=== PATIENT | male | born 1955 | race Caucasian/White ===

== ENCOUNTER 2022-08-16 09:43 | Observation (INO) ==
--- NOTE | 2022-07-18 16:07 | PAT Medication Instructions ---
Medication Instructions Date of Service July 18, 2022 Home Medications albuterol sulfate 90 mcg/actuation aerosol inhaler (ProAir HFA) 1 inh inhalation QID PRN atorvastatin 40 mg tablet 40 mg PO QAM celecoxib 200 mg capsule 200 mg PO QAM empagliflozin 25 mg tablet (Jardiance) 25 mg PO QAM lisinopril 40 mg tablet 40 mg PO QAM metformin 500 mg tablet,extended release 24 hr 500 - 1,000 mg PO UD metoprolol succinate 25 mg capsule sprinkle, ext. release 24 hr 25 mg PO QAM pantoprazole 40 mg tablet,delayed release 40 mg PO QAM pioglitazone 45 mg tablet 45 mg PO QAM tramadol 50 mg tablet 100 mg PO HS tamsulosin 0.4 mg capsule 0.4 mg PO QAM STOP 3 days before surgery empagliflozin 25 mg tablet (Jardiance) 25 mg PO QAM pioglitazone 45 mg tablet 45 mg PO QAM ASK your surgeon for instructions celecoxib 200 mg capsule 200 mg PO QAM DO NOT take the morning of surgery lisinopril 40 mg tablet 40 mg PO QAM metformin 500 mg tablet,extended release 24 hr 500 - 1,000 mg PO UD Take morning of surgery With a small sip of water, OTHERWISE NOTHING TO EAT OR DRINK AFTER MIDNIGHT: albuterol sulfate 90 mcg/actuation aerosol inhaler (ProAir HFA) 1 inh inhalation QID PRN(use if needed; please bring with you to hospital day of surgery if possible) atorvastatin 40 mg tablet 40 mg PO QAM metoprolol succinate 25 mg capsule sprinkle, ext. release 24 hr 25 mg PO QAM pantoprazole 40 mg tablet,delayed release 40 mg PO QAM tamsulosin 0.4 mg capsule 0.4 mg PO QAM Take evening before surgery albuterol sulfate 90 mcg/actuation aerosol inhaler (ProAir HFA) 1 inh inhalation QID PRN(if needed) tramadol 50 mg tablet 100 mg PO HS Other Notes If you have any questions please call us at [phone] or [phone] or [phone] or [phone]
--- NOTE | 2022-07-25 08:55 | Anesthesiology Consultation ---
Date of Service July 25, 2022 Assessment & Plan (1) Encounter for pre-operative examination: Plan - awaiting PCP response. - new septal infarct on EKG: New to chart review. This was discussed in detail with patient, including cardiology pre-op evaluation. He requests first sending a note to his PCP to confirm if this is a new finding. Optimization form completed, PAT testing to be faxed to PCP. Surgeon's office made aware. - check BSG am DOS. To anesthesiologist discretion if additional testing is needed DOS. - PONV: pt reports having received scop patch in the past without adverse effects, to anesthesiologist discussion/discretion DOS if pt to have scop patch for this procedure given age. - chlorhexidine allergy: wipes not provided at PAT appointment. - Outpatient joint assessment: Pending above. Chart Review Chart Review: Pending: Refer to Additional Notes / Consult section and Patient seen in Pre Admission Testing Teaching & Discussion Pre-Anesthesia Teaching/Discussion Notes: Instructed NPO after midnight before surgery, except medications with 15 cc of water. Medication instructions provided according to the PAT guidelines. History Surgery Operation Date: 08/16/22 10:40 Proposed Procedures p Right Total Knee Arthroplasty - Keegan Linares MD Height/Weight Height: 5 ft 5 in Weight: 94.2 kg Allergies Allergy/AdvReac Type Severity Reaction Status Date / Time chlorhexidine Allergy Severe ITCH Verified 07/18/22 15:31 oxycodone Allergy Intermediate FAST HEART Verified 07/18/22 15:31 RATE, NERVOUSNESS;itchy acetaminophen [From Percocet] Allergy fast heart Verified 07/18/22 15:31 rate morphine AdvReac Intermediate INCREASED Verified 07/18/22 15:31 CONFUSION Medications Home Medications Medication Instructions Recorded Confirmed Last Taken albuterol sulfate 90 mcg/actuation 1 inh inhalation QID PRN sob 06/01/20 07/18/22 Unknown aerosol inhaler (ProAir HFA) atorvastatin 40 mg tablet 40 mg PO QAM 06/01/20 07/18/22 07/06/20 celecoxib 200 mg capsule 200 mg PO QAM 06/01/20 07/18/22 07/06/20 empagliflozin 25 mg tablet 25 mg PO QAM 06/01/20 07/18/22 07/06/20 (Jardiance) lisinopril 40 mg tablet 40 mg PO QAM 06/01/20 07/18/2207/07/21 06:00 metformin 500 mg tablet,extended 500 - 1,000 mg PO UD 06/01/20 07/18/22 07/06/20 release 24 hr metoprolol succinate 25 mg capsule 25 mg PO QAM 06/01/20 07/18/22 07/07/20 06:00 sprinkle, ext. release 24 hr pantoprazole 40 mg tablet,delayed 40 mg PO QAM 06/01/20 07/18/22 07/07/20 06:00 release pioglitazone 45 mg tablet 45 mg PO QAM 06/01/20 07/18/22 07/06/20 tramadol 50 mg tablet 100 mg PO HS 06/01/20 07/18/22 07/06/20 tamsulosin 0.4 mg capsule 0.4 mg PO QAM 07/18/22 07/18/22 Unknown Additional Notes: Pt was advised to only not take pioglitazone morning of surgery, this was also written on provided medication instructions. Past Medical History Medical History (Updated 07/25/22 @ 09:07 by Cathy Vargas PA-C) COPD (chronic obstructive pulmonary disease) controlled, stable per pt-last albuterol inhaler use several wks ago Degenerative disc disease, lumbar DM type 2 (diabetes mellitus, type 2) NIDDM Essential tremor GERD (gastroesophageal reflux disease) controlled, stable per pt Hearing deficit BL REID History of COVID-2021, tested at PCP, not hosp; "mild cold symptoms">resolved HLD (hyperlipidemia) HTN (hypertension) controlled, stable per pt IBS (irritable bowel syndrome) Obesity Spinal stenosis Patient denies h/o stroke, seizures, heart attack, heart failure, blood clots or blood transfusions. Exercise / Class Metabolic Activity II 4-5 Yardwork/Stairs/Walk up hill (denies chest discomfort or shortness of breath with 1 FOS) Past Family History Family History Brother Diabetes Other No family history of adverse response to anesthesia Past Surgical History Surgical History (Updated 07/25/22 @ 09:10 by Cathy Vargas PA-C) History of arthroscopy of shoulder pt unsure which side History of cataract surgery RT/LT History of cervical spinal surgery ROM wnl History of colonoscopy History of esophagogastroduodenoscopy (EGD) History of left knee replacement History of lumbar surgery x 4 PONV (postoperative nausea and vomiting) Past Anesthesia History No Hx of Anesthesia Complications and No Family Hx of Anesthesia Complications History of PONV No Hx of Motion Sickness and History of PONV (pt states has received scop patch several yrs ago, denies adverse effects) Social History Smoking Status: Former smoker Do You Dip or Chew Tobacco: No Smoking End Date: 11/15/10 Hx Alcohol Use: Yes Alcohol type: beer alcohol intake frequency: 0-2 drinks per day Hx Substance Use: No substance use type: does not use Review of Systems Snoring, denies witnessed apneas. Patient denies chest pain, shortness of breath, dyspnea on exertion, fever, chills, cough, wheezing, or palpitations. Physical Exam Vital Signs Vitals BP 121/80 P 69 TEMP 97.9 SP02 94% on RA RESP 17 Physical Mildly limited cervical extension range of motion without pain TMD 3.5 finger breadths Mallampati Score 2 Dentition: upper dentures and one cap/crown, denies chipped or loose teeth, implants or bridges Lungs: normal respiratory effort. Good air movement, clear throughout to auscultation, no adventitious breath sounds Cardiac: regular rate and rhythm, no murmurs noted Carotid arteries: negative bruit bilat Lab Results Anesthesia Preop Results Results Anesthesia Widget: WBC 5.31 K/ul (4.8-10.8) 07/25/22 Hgb 14.4 g/dl (14.0-18.0) 07/25/22 Hct 41.5 % (42.0-52.0) L 07/25/22 Plt 221 K/uL (130-400) 07/25/22 Na 135 mmol/L (136-145) L 07/25/22 K 5.1 mmol/L (3.5-5.1) 07/25/22 Cl 103 mmol/L (98-107) 07/25/22 CO2 25 mmol/L (21-32) 07/25/22 BUN 31 mg/dl (6-23) H 07/25/22 Creat 1.53 mg/dl (0.6-1.4) H 07/25/22 Glucose Level 136 mg/dl (70-99(Fasting)) H 07/25/22 PT 10.8 Seconds (9.0-12.0) 07/25/22 PTT 30.7 Seconds (21.0-31.0) 07/25/22 INR 1.0 (0.9-1.1) 07/25/22 HA1c 7.4 % (4.5-5.6) H 07/25/22 Blood Type B Positive 07/25/22 Antibody Screen NEGATIVE 07/25/22 Testing Electrocardiogram Date: 07/25/22 NSR, rate 63 bpm Septal infarct, age undetermined Septal infarct is now present Chest X-Ray Date: 07/25/22 No acute cardiopulmonary findings Other Testing Carotid 09/14/21 < 50% stenosis ICAs bilat COVID-19 Risk Screen Screening Information COVID-19 Screen Date: 07/25/22 Exposure 21 Days Family/Household +COVID Last 21 Days: No Exposure 10 Days Any COVID Exposure Last 10 Days: No Symptoms Last 10 Days Experienced COVID Sx Last 10 Days: No + COVID 0-90 Days COVID + in Last 0-90 Days: No
--- NOTE | 2022-08-05 14:36 | History & Physical Report ---
Date of Service August 05, 2022 History of Present Illness Chief Complaint: . Persistent right knee pain and discomfort Primary Care Provider: Solange Agrawal . Patient is a 66-year-old gentleman from [place] who presents for surgical treatment as right knee. Gerson a fairly long history of global pain and discomfort in his right knee. This is increased with weightbearing. Is been through extensive conservative treatment which has been less successful over time. Does have a history of a knee scope done by Dr. Walsh in the past. Patient also reports a history of left knee replaced number [id number] in 2016. He did have this revised for apparently thicker polyethylene for stability issues. He is continues have recurrent pain and swelling in that knee. He had an infectious work-up which is normal. He is living with this but would like to have his right knee fracture even though the left knee is not great. Asked medical history past medical diabetes #2 elevated cholesterol #3 hypert ension. Previous including 1 right knee arthroscopy done by Dr. Walsh #2 left knee replacement done by Dr. Walsh #3 left knee revision to a thicker poly by [facility] for the next back surgery x5. Allergy to Percocet. Does okay with tramadol. Current meds include tamsulosin Next Jardiance next 10 tramadol next cemented in next metformin next metoprolol next lisinopril next pantoprazole next pioglitazone next atorvastatin neck Celebrex. Social 66-year-old male. He is from [facility]. His medical doctor Dr. Odonnell. 1-2 drinks per day. Is not smoke. Family history is a second for diabetes. Review of systems a second for diabetes. His A1c is 7.4. No chest pain or shortness of breath. 1-2 drinks per day. No history of DVT or PE. No known bleeding problems. Exam Brad is a pleasant middle-age male but looks in reasonably good health. HEENT exam is benign. Neck supple no lymphadenopathy lungs good auscultation. Heart has a regular rate and rhythm. Abdomen soft nontender nondistended extremity is gross neuro vas intact swallows. Examination the right knee reveals the patient walks independently. Slight varus alignment to his knee. Got well-healed portal sites from the previous scope. Small knee effusion. Range of motion 5-1 25. No instability. Examination left knee reveals well-healed incision. He does have some mild diff use thickening and scarring of the knee. Range of motion is near full extension to 110 degrees of flexion. No instability. X-rays x-ray of the right knee reviewed. Shows advanced right knee medial compartment DJD. Is got complete loss of his medial joint space. Caroline magdaleno 6-year-old gentleman with a history of multiple orthopedic surgeries and classic in the past including a right knee scope multiple back operations and left knee replacement and revision. He is bothered mostly by his right knee today. Has failed conservative treatment would like to have it replaced. Mammogram taken the operative right total replacement of the right Samet this procedure plan the patient could not limited DVT PE infection neurological and vascular bleeding palm pain limb range of motion this is fairly of symptoms incomplete relief. Need for further surgery in future etc. Patient understands and desires to proceed informed consent is obtained. Patient does apparently have a chlorhexidine allergy and will likely use DuraPrep/Betadine. Use of tramadol for pain control. We have a pending medical clearance from her primary his primary care doctor is Dr. Vee. As soon as is okay we will proceed with knee replacement. Allergies Allergy/AdvReac Type Severity Reaction Status Date / Time chlorhexidine Allergy Severe ITCH Verified 07/18/22 15:31 oxycodone Allergy Intermediate FAST HEART Verified 07/18/22 15:31 RATE, NERVOUSNESS;itchy acetaminophen [From Percocet] Allergy fast heart Verified 07/18/22 15:31 rate morphine AdvReac Intermediate INCREASED Verified 07/18/22 15:31 CONFUSION Home Medications Medication Instructions Recorded Confirmed Type albuterol sulfate 90 mcg/actuation 1 inh inhalation QID PRN sob 06/01/20 07/18/22 History aerosol inhaler (ProAir HFA) atorvastatin 40 mg tablet 40 mg PO QAM 06/01/20 07/18/22 History celecoxib 200 mg capsule 200 mg PO QAM 06/01/20 07/18/22 History empagliflozin 25 mg tablet 25 mg PO QAM 06/01/20 07/18/22 History (Jardiance) lisinopril 40 mg tablet 40 mg PO QAM 06/01/20 07/18/22 History metformin 500 mg tablet,extended 500 - 1,000 mg PO UD 06/01/20 07/18/22 History release 24 hr metoprolol succinate 25 mg capsule 25 mg PO QAM 06/01/20 07/18/22 History sprinkle, ext. release 24 hr pantoprazole 40 mg tablet,delayed 40 mg PO QAM 06/01/20 07/18/22 History release pioglitazone 45 mg tablet 45 mg PO QAM 06/01/20 07/18/22 History tramadol 50 mg tablet 100 mg PO HS 06/01/20 07/18/22 History tamsulosin 0.4 mg capsule 0.4 mg PO QAM 07/18/22 07/18/22 History Past Med/Surg History Medical History (Updated 07/25/22 @ 09:07 by Cathy Vargas PA-C) COPD (chronic obstructive pulmonary disease) controlled, stable per pt-last albuterol inhaler use several wks ago Degenerative disc disease, lumbar DM type 2 (diabetes mellitus, type 2) NIDDM Essential tremor GERD (gastroesophageal reflux disease) controlled, stable per pt Hearing deficit BL REID History of COVID-2021, tested at PCP, not hosp; "mild cold symptoms">resolved HLD (hyperlipidemia) HTN (hypertension) controlled, stable per pt IBS (irritable bowel syndrome) Obesity Spinal stenosis Surgical History (Updated 07/25/22 @ 09:10 by Cathy Vargas PA-C) History of arthroscopy of shoulder pt unsure which side History of cataract surgery RT/LT History of cervical spinal surgery ROM wnl History of colonoscopy History of esophagogastroduodenoscopy (EGD) History of left knee replacement History of lumbar surgery x 4 PONV (postoperative nausea and vomiting) Family History Brother Diabetes Other No family history of adverse response to anesthesia Social History Smoking Status: Former smoker Second Hand Exposure: No; Do You Dip or Chew Tobacco: No; Hx Alcohol Use: Yes Alcohol type: beer Hx Substance Use: No Preferred Language: Irish Communication Ability: Effective Electrical Equipment Assembler Required: No Beliefs That Will Affect Care: None Current Living Situation: Spouse Feels Safe at Home: Yes Assistive Devices: Denture - Upper, Glasses and Hearing Aid - Bilateral Review of Systems All systems reviewed & are unremarkable except as noted in HPI & below. Physical Exam . Results & Data Results & Data Laboratory Results . Diagnostic Findings . PG Care Time/CCT Total # of Minutes Spent Total Time Spent with Patient: Total time spent is greater than 50% in coordination of care (as documented) at patient's floor/unit and/or counseling patient: Coding Level of Care Code None Diagnoses
[~2022-08-16 09:43] MED LIST: ACETAMINOPHEN 500 MG TAB PO SCH; BUPIVACAINE LIPOSOME/PF 266 MG, BUPIVACAINE/EPINEPHRINE 50 ML, SODIUM CHLORIDE 0.9% PF ... INFIL SCH; CeleBREX 200 MG CAP PO SCH; FAMOTIDINE 20 MG TAB PO SCH; LR 500ML BOLUS, THEN 15ML/HR IV SCH; METOCLOPRAMIDE HCL 10 MG TABLET PO SCH; ROPIVACAINE 0.5% 5 MG/ML 30 ML VIAL ONE; Scopolamine 1 MG TDSY TD SCH; TRANEXAMIC ACID 1,000 MG **IV Intra-op IV SCH; ceFAZolin 2000MG 2,000 MG/15 ML SYR IV SCH
--- NOTE | 2022-08-16 10:57 | History & Physical Bridge Note ---
Date of Service August 16, 2022 History & Physical Bridge Note I have examined the patient, reviewed the History & Physical and in the interval since the performance of the History & Physical I have noted the following changes of clinical significance: no changes noted
[2022-08-16] MEDS ORDERED: PROPOFOL IV EMULSION 10 MG/ML 20 ML VIAL IV ONE ×3 (12:23→15:09)
[2022-08-16] MEDS ORDERED: MIDAZOLAM HCL 1 MG/ML 2ML VIAL ONE (12:23)
[2022-08-16] MEDS ORDERED: fentaNYL citrate PF 100 MCG/2 ML VIAL ONE (12:23)
[2022-08-16] MEDS ORDERED: ATROPINE SULFATE 0.1 MG/ML 10ML SYR IV PRN (12:36)
[2022-08-16] MEDS ORDERED: fentaNYL citrate PF 100 MCG/2 ML VIAL IV PRN (12:36)
[2022-08-16] MEDS ORDERED: ePHEDrine sulfate 50 MG/ML AMP IV PRN (12:36)
[2022-08-16] MEDS ORDERED: KETOROLAC 30 MG/ML VIAL IV PRN (12:36)
[2022-08-16] MEDS ORDERED: ONDANSETRON INJ 2 MG/ML 2 ML VIAL IV PRN ×2 (12:36→17:11)
[2022-08-16] MEDS ORDERED: BUPIVACAINE LIPOSOME 1.3% 266 MG/20 ML VIAL ONE (13:47)
[2022-08-16] MEDS ORDERED: SODIUM CHLORIDE 0.9% PF 50 ML VIAL ONE (13:47)
[2022-08-16] MEDS ORDERED: BUPIVACAINE/EPINEPHRINE 0.25% 1:200,000 30 ML VIAL ONE (13:47)
[2022-08-16] MEDS ORDERED: DEXAMETHASONE SOD INJ 4 MG/ML VIAL ONE (14:19)
[2022-08-16] MEDS ORDERED: ONDANSETRON INJ 2 MG/ML 2 ML VIAL ONE (14:48)
--- NOTE | 2022-08-16 15:40 | Operative Report ---
PG Post Operative Report Pre & Post Diagnosis Operation Date: 08/16/22 12:00 Pre-Op Diagnosis: Right Knee Degenerative Joint Disease Post-Op Diagnosis: Right Knee Degenerative Joint Disease I identified the patient and participated in the time-out.: Yes Procedure Operation Date: 08/16/22 12:00 Actual Procedures p Right Total Knee Arthroplasty(Right) - Keegan Linares MD Surgeon Keegan Linares MD Housekeeping Laundry Worker Olivier Aguirre PA-C Estimated Blood Loss 50 Findings Consistent with Post-Op Diagnosis Operative findings advanced right knee DJD. He had a pretty extensive grade 4 [id number] disease in medial compartment primarily. He is in the spine degenerative changes of the patellofemoral joint. The lateral compartment is pretty well spared. Moderate-sized joint effusion. Specimens Right knee sent for pathology Anesthesia Type Spinal MAC Complications none Disposition Accompanied Patient To Recovery: No Indications Patient 66-year-old gentleman who had a long history of bilateral knee pain discomfort describes gotten worse over time. Does have a history of a left knee replacement done in the past. He had some intermittent problems with that but in general it is worked reasonably well. He continued be limited by right knee pain discomfort. He elected proceed with right total knee arthroplasty. He has had an infectious work-up beforehand and there were no signs of underlying infection. Description of Procedure Operative implants consist of: 1 Biomet Vanguard size 70 right posterior stabilized femoral component. 2. Biomet size 75 tibial tray. 3. 10 mm post stabilized polyethylene insert. 4. 31 x 8 all poly patella. The patient was taken the operating, identified, placed on the operating table supine position protectors were properly padded. IV antibiotics arrived by anesthesia team. A spinal anesthetic and abductor canal block had been provided in the holding area. A right thigh tourniquet was then placed. The right lower extremities and prepped and draped in usual sterile fashion. The right leg was elevated exsanguinated with use of an Esmarch and the tourniquet was placed at 300 mmHg. An anterior approach to the right knee was then performed through a longitudinal incision centered over the patella. Sharp dissection was carried through subcutaneous tissue down the extensor mechanism. A medial parapatellar arthrotomy incision was made. Some subperiosteal dissection was carried out medially. The fat pad was resected from Neath patella tendon. Lateral patellofemoral ligament was released. Patella sublux ated laterally and the knee was flexed. The osteophytes taken on distal femur P the ACL PCL then released from distal femur. The tibia subluxated anteriorly. External tibial alignment jig was then placed in the interface the tibia and adjusted 14 mm medially. Proximal tibial cut was made remove about a millimeter of bone from the most deficient aspect the medial tibial plateau. The tibia was then sized to a size 75. Attention drawn the femur. The distal femur examined the sharp drop with intramedullary canal was suction. A right 6 degree valgus cutting guide was placed. Distal femoral cutting block was pinned in place. Distal femoral cut was made to take an additional 3 mm of bone off distal femur. The femur was then sized to a size 70. The AP cutting block was pinned parallel to the epicondylar axis which was 4 degrees of external rotation. Anterior cut, anterior chamfer, posterior cut, posterior chamfer cuts were made. The box cutting guide was placed in just slight lateral and the box cut was made. The knee was flexed. The remnants of the medial and lateral menisci were excised. The osteophytes taken off the posterior aspect the femur. A trial femoral component was placed but the tibial tray was pinned in maximum external rotation and the drill and stem punch were used to create defect in proximal tibia for the tibial tray. Knee was then trialed and the 10 mm insert fit most appropriately. Attention drawn the patella. The patella was cleaned of all soft tissues. Patella thickness measured 23 mm in thickness and was cut down to a 14. It was sized to a size 31 patella. The lug holes were drilled for 31 patella. The lateral osteophytes removed. Patella button was placed. Knee was taken through range of motion patella tracked nicely with no thumbs test. Attention drawn to place the permanent components. Nupathe all trial components were removed. Bone plug was placed in the distal femur limit blood loss. Double batch Palacos G cement was mixed. A Biomet Vanguard size 70 left posterior stabilized femoral component, size 75 tibial tray, a 10 mm posterior stabilized polyethylene insert, and a 31 x 8 all poly patella then cemented in place. The knee was brought out into full extension till cement hardened. Final cement check was then performed. The pericapsular tissues were injected with total of 100 cc of combination of 20 cc of Exparel, 30 cc normal saline, 50 cc of quarter percent Marcaine with epinephrine. Patient did receive 1 g of tranexamic acid. The tourniquet was then let down for final tourniquet time 53 minutes. Hemostasis assured use electrocautery. Extensor mechanism then closed with combination 1 PDS suture #1 Vicryl suture in [id number] fashion. Extensor mechanism checked found to be intact and subcutaneous tissues then closed with 2 Dexon suture in a buried interrupted fashion skin was closed skin rebecca. Leg was then cleaned and dried and sterile dressed with Xeroform, 4 x 4's, sterile cast padding, Antoine bandage were applied. Patient was then transferred to the recovery room in stable condition. Patient tolerated procedure well and there were no complications. Olivier Aguirre, my physician asset protection assistant, was present for the entire procedure. His assistance was essential and required for appropriate patient positioning, prepping and draping, surgical exposure, performing the technical details of the operation, placement the implants, closure of the wound, and placement of the sterile bandage. I attest to the content of the Intraoperative Record and any orders documented therein. Any exceptions are noted below.
--- NOTE | 2022-08-16 16:18 | XRay Report ---
RIGHT KNEE 2 VIEWS History: Right total knee arthroplasty. Degenerative arthritis. Postop. FINDINGS: The patient is status post a right total knee arthroplasty. The hardware is intact. No frac ture or dislocation. Skin rebecca are in place. IMPRESSION: Right total knee arthroplasty. No evidence for hardware complication. ACT 112: Negative or not required by law. Electronically signed by: Armin Whelan M.D. 08/16/2022 4:16 PM
[2022-08-16] MEDS ORDERED: DEXTROSE 50% 50 ML SYRINGE IV PRN (17:11)
[2022-08-16] MEDS ORDERED: bisacodyL 10 MG SUPP PR PRN (17:11)
[2022-08-16] MEDS ORDERED: ASCORBIC ACID 500 MG TAB PO SCH (17:11)
[2022-08-16] MEDS ORDERED: ALBUTEROL HFA 8 GM INHALER INH PRN (17:11)
[2022-08-16] MEDS ORDERED: GLUCOSE 10 TAB/TUBE PO PRN (17:11)
[2022-08-16] MEDS ORDERED: NO NSAIDS SCH (17:11)
[2022-08-16] MEDS ORDERED: METOCLOPRAMIDE HCL INJ 5 MG/ML 2 ML VIAL IV PRN (17:11)
[2022-08-16] MEDS ORDERED: traMADol HCL 50 MG TABLET PO PRN (17:11)
[2022-08-16] MEDS ORDERED: CARBOHYDRATES FOR HYPOGLYCEMIA PO PRN (17:11)
[2022-08-16] MEDS ORDERED: ALUMINUM/MAGNESIUM SUSP 30 ML UDC PO PRN (17:11)
[2022-08-16] MEDS ORDERED: NALOXONE HCL 0.4 MG/1 ML VIAL/CARP IV PRN (17:11)
[2022-08-16] MEDS ORDERED: PHARMACY GLYCEMIC MGMT CONSULT PRN (17:11)
[2022-08-16] MEDS ORDERED: GLUCAGON FOR INJ 1 MG VIAL SQ PRN (17:11)
[2022-08-16] MEDS ORDERED: MAGNESIUM HYDROXIDE SUSP 30 ML UDC PO PRN (17:11)
[2022-08-16] MEDS ORDERED: HYDROmorphone INJ 0.5 MG/0.5 ML SYR IV PRN (17:11)
[2022-08-16] MEDS ORDERED: GLUCOSE 40% GEL 15 GM TUBE PO PRN (17:11)
--- NOTE | 2022-08-16 17:28 | Anesthesiology Progress Note ---
Date of Service August 16, 2022 Anesthesia Post Procedure Vital Signs Vital Signs: Temp Pulse Pulse Resp BP Pulse Ox O2 Del Method 08/16/22 17:11 97.5 F L 66 16 159/81 H 95 Room Air 08/16/22 16:55 97.2 F L 67 19 140/80 94 Room Air 08/16/22 16:45 60 18 139/83 93 Room Air 08/16/22 16:35 60 14 138/77 92 Room Air 08/16/22 16:25 67 17 134/79 94 Room Air 08/16/22 16:15 63 17 143/74 H 93 Room Air 08/16/22 15:55 63 17 133/70 95 Room Air 08/16/22 16:05 67 16 130/90 95 Room Air 08/16/22 15:45 68 14 127/65 97 Oxymask 08/16/22 15:38 97.7 F 66 15 121/59 L 98 Oxymask 08/16/22 10:29 97.9 F 68 20 176/87 H 96 Room Air O2 Flow Rate 08/16/22 17:11 08/16/22 16:55 08/16/22 16:45 08/16/22 16:35 08/16/22 16:25 08/16/22 16:15 08/16/22 15:55 08/16/22 16:05 08/16/22 15:45 5 08/16/22 15:38 5 08/16/22 10:29 Transfer of Care Handoff Completed per policy Notes Mental Status: alert / awake / arousable and participated in evaluation Patient Amnestic to Procedure: Yes Nausea / Vomiting: adequately controlled Pain: adequately controlled Airway Patency, RR, SpO2: stable & adequate BP & HR: stable & adequate Hydration State: stable & adequate Neuraxial Anesthesia: was administered and sensory block is resolving Anesthetic Complications: no major complications apparent and Pt Satisfied with anesthetic care
[2022-08-16] MEDS ORDERED: LANTUS PER UNIT CHARGE SC ONE (17:30)
[2022-08-16] MEDS: Scopolamine CHECK PATCH PLACEMENT SCH ×2 (17:59→23:10)
[2022-08-16] MEDS: INSULIN ASPART PER UNIT CHARGE SC SCH ×2 (17:59→21:08)
[2022-08-16] MEDS: SODIUM CHLORIDE 0.9% 1000ML 1,000 ML IV SCH (18:01)
[2022-08-16] MEDS: ACETAMINOPHEN 500 MG TAB PO SCH (20:21)
[2022-08-16] MEDS: ASPIRIN 81 MG ECTAB PO SCH (20:21)
[2022-08-16] MEDS ORDERED: SENNA 8.6 MG TAB PO SCH ×2 (21:00)
[2022-08-16] MEDS ORDERED: DOCUSATE SODIUM 100 MG CAP PO SCH (21:00)
[2022-08-16] MEDS ORDERED: TRANEXAMIC ACID / 0.7% NACL 1,000 MG/100 ML BAG IV SCH (21:45)
[2022-08-16] MEDS ORDERED: ceFAZolin 2000MG 2,000 MG/15 ML SYR IV SCH (21:45)
[2022-08-17] MEDS: SODIUM CHLORIDE 0.9% 1000ML 1,000 ML IV SCH (03:58)
[2022-08-17] MEDS: Scopolamine CHECK PATCH PLACEMENT SCH (08:39)
[2022-08-17] MEDS: ASPIRIN 81 MG ECTAB PO SCH (08:40)
[2022-08-17] MEDS: ACETAMINOPHEN 500 MG TAB PO SCH (08:41)
[2022-08-17] MEDS ORDERED: LANTUS PER UNIT CHARGE SC SCH (09:00)
[2022-08-17] MEDS ORDERED: ATORVASTATIN 40 MG TAB PO SCH (09:00)
[2022-08-17] MEDS ORDERED: NON-FORMULARY MEDICATION (Pioglitazone 45 mg Tablet) PO SCH (09:00)
[2022-08-17] MEDS ORDERED: PANTOprazole 40 MG TAB PO SCH (09:00)
[2022-08-17] MEDS ORDERED: TAMSULOSIN HCL 0.4 MG CAP PO SCH (09:00)
[2022-08-17] MEDS ORDERED: METOPROLOL SUCC 25MG EXT REL TAB PO SCH (09:00)
[2022-08-17] MEDS ORDERED: lisinopril 40 MG TAB PO SCH (09:00)
[2022-08-17] MEDS ORDERED: MULTIVITAMIN TAB PO SCH (09:00)
--- NOTE | 2022-08-17 09:18 | Orthopedic Progress Note ---
Date of Service August 17, 2022 Assessment & Plan (1) Status post right knee replacement: 1. PT OT. Weightbearing as tolerated. Right total knee protocol. 2. Pain control. Doing well with current pain regimen. 3. DVT prophylaxis including thigh-high teds SCDs and aspirin twice a day. 4. Disposition plan is to discharge to home with later today. He is going to do outpatient therapy. We will give him instructions on wound care and changing his dressing tomorrow. Subjective . 66-year-old gentleman postop day 1 from right knee replacement. He is doing well. Describes some thigh discomfort and that is really mostly hip. He had a good night. Pain is controlled. No chest pain or shortness of breath. He is hoping to go home. Review of Systems All systems reviewed & are unremarkable except as noted in HPI & below. Physical Exam . Physical examination reveals a pleasant middle-age male. He is sitting up at his bedside and eating breakfast. He looks comfortable. Examination of the right knee and leg reveals the dressing was clean dry and intact. He can dorsiflex and plantarflex his foot appropriately. He can do a straight leg rais e. He is neurologically intact. Respiratory normal respiratory effort, lungs clear to auscultation Cardiovascular RRR, no murmur, no edema Gastrointestinal (Abdomen) normal bowel sounds, soft, nontender, no hepatosplenomegaly Results & Data Results & Data Laboratory Results . Current labs are pending Diagnostic Findings . PG Care Time/CCT Total # of Minutes Spent Total Time Spent with Patient: Total time spent is greater than 50% in coordination of care (as documented) at patient's floor/unit and/or counseling patient: Coding Level of Care Code 19896 Post Operative Follow-Up Diagnoses Status post right knee replacement Z96.651
[2022-08-17] MEDS: INSULIN ASPART PER UNIT CHARGE SC SCH (09:24)
--- NOTE | 2022-08-19 07:52 | Discharge Summary ---
Date of Service August 19, 2022 Discharge Data Procedures Performed Operation Date: 08/16/22 12:00 Actual Procedures p Right Total Knee Arthroplasty(Right) - Keegan Linares MD Hospital Course (1) Status post right knee replacement: This is a 66 year old patient admitted on 08/16/22 and underwent total knee arthroplasty. He tolerated the procedure well and there were no complications. Transferred to the PACU post op and later to the orthopedic floor for further care. He was given ancef for antibiotic prophylaxis. He was also given W[place]ATT stockings, SCDs, and aspirin for DVT prophylaxis. Hemoglobin, hematocrit, and vital signs were monitored during his hospital stay and remained stable. Did not require any blood transfusions. There were no complications during his hospital stay. By post op day #1 the patient was tolerating a diabetic diet, pain was reasonably controlled with oral pain medicine, and he was participating in physical therapy. On post op day #1 the patient was discharged home. He was given printed discharge instructions including prescriptions for extra strength tylenol, aspirin, cefadroxil, zofran, senokot, and tramadol. Continue physical therapy, weight bearing as tolerated. Continue WYATT stockings. Follow up approximately 2 weeks post op or sooner if there are problems or concerns. Coding Level of Care Code None Diagnoses Status post right knee replacement Z96.651
== END 2022-08-17 11:14 | disposition home or self-care (01) ==
LOC: ASU 09:43 → 3E 09:43
DX: Z79.51 Long term (current) use of inhaled steroids; Z88.8 Allergy status to other drugs, medicaments and biological substances; I10 Essential (primary) hypertension; M17.11 Unilateral primary osteoarthritis, right knee; Z79.899 Other long term (current) drug therapy; E11.9 Type 2 diabetes mellitus without complications; Z87.891 Personal history of nicotine dependence; J44.9 Chronic obstructive pulmonary disease, unspecified; Z88.5 Allergy status to narcotic agent; Z79.84 Long term (current) use of oral hypoglycemic drugs